=== PATIENT | female | born 1985 | race Caucasian/White ===

== ENCOUNTER 2019-07-27 13:36 | Outpatient (CLI) | payer OTHER, SELFPAY ==
--- NOTE | ~2019-07-27 | US_ITS ---
EXAMINATION: US OB <= 14 weeks fetus EXAM DATE: 07/27/2019 14:41 INDICATION: For dating. . 2nd trimester. TECHNIQUE: Pelvic obstetrical transabdominal sonogram was performed by a technologist. There are mu ltiple grayscale and Doppler images available for interpretation. There are no earlier studies of th is gestation for comparison. FINDINGS: Uterus measures 11.4 x 7.2 x 10.6 cm. There is intrauterine gestation sac. pole wit h heart rate confirmed at 157 beats per minute. The 7.9 cm crown-rump length corresponds to estimate d gestational age by ultrasound of 14 weeks 0 days. There is no sonographic evidence of subchorionic hemorrhage. The ovaries are morphologically normal. IMPRESSION: Live intrauterine gestation, age by ultrasound 14 weeks 0 days. Reviewed, dictated and finalized at location A.
== END 2019-07-27 13:37 | disposition home or self-care (01) ==
PROVIDERS: Visit Provider Nurse Practitioner
DX: Z36.9 Encounter for antenatal screening, unspecified (principal); Z3A.14 14 weeks gestation of pregnancy
CPT/HCPCS: 76801

== ENCOUNTER 2019-11-12 10:39 | Outpatient (CLI) | payer OTHER, SELFPAY ==
[2019-11-12 12:03] LABS: Hematocrit 35.2 % (37.0-47.0)
[2019-11-12 12:16] LABS: Glucose 1 Hour PP 50gm Dose 111 mg/dL
[2019-11-12 12:57] LABS: Vitamin D 25 Hydroxy 60.6 ng/mL
[2019-11-12 12:58] LABS: HIV 1/2 Ab P24 Ag Result Negative (Negative)
[2019-11-12] MEDS: RHO(D) IMMUNE GLOBULIN 300 MCG SYRINGE IM (15:59)
== END 2019-11-12 10:40 | disposition home or self-care (01) ==
LOC: ANHLAB 10:41
PROVIDERS: Visit Provider Nurse Practitioner
DX: Z34.92 Encounter for supervision of normal pregnancy, unspecified, second trimester (principal)
CPT/HCPCS: 36415; 82306; 82947; 85014; 85018; 85461; 86703; 90384; 96372; G0432; J2790

== ENCOUNTER 2020-01-12 17:05 | Observation (INO) | payer OTHER, SELFPAY ==
[2020-01-12] MEDS: CYCLOBENZAPRINE HCL 10 MG TABLET PO (22:31)
--- NOTE | 2020-01-14 12:14 | PM.OBTRLD ---
OB - Triage/Final Diagnosis Final Diagnosis (1) Prolonged latent phase of labor: Code(s): O63.0 - Prolonged first stage (of labor) Status: Acute
== END 2020-01-12 22:40 | disposition home or self-care (01) ==
PROVIDERS: Admitting Provider Obstetrics & Gynecology; Visit Provider Obstetrics & Gynecology
DX: O63.0 Prolonged first stage (of labor) (principal); Z3A.37 37 weeks gestation of pregnancy
CPT/HCPCS: A9270; G0378; G0379

== ENCOUNTER 2020-01-13 07:51 | Inpatient (IN) | payer OTHER, SELFPAY ==
[2020-01-13] VITALS (78 sets, daily range): BP systolic 81–125; BP diastolic 48–98; PULSE 62–113; RESP 16; TEMP 36.7–37; O2SAT 93–98
[2020-01-13] MEDS: LACTATED RINGERS 1,000 ML 125 ML IV CONT ×3 (08:40→10:02)
[2020-01-13 08:44] LABS: Basophils Percent Auto 0.1 % (0.2-1.2); Hematocrit 35.2 % (37.0-47.0); Hemoglobin 12.2 g/dL (12.0-15.0); Immature Granulocyte Absolute 0.17 K/mm3 (0.00-0.031); Immature Granulocyte Percent A 1.1 % (0-0.5); Lymphocytes Percent Auto 6.5 % (18.3-44.2); Mean Corpuscular HGB Conc 34.7 g/dl (32-36); Mean Corpuscular Hemoglobin 31.1 pg (26-34); Mean Corpuscular Volume 89.8 fl (80-100); Mean Platelet Volume 10.3 fl (7.4-10.4); Monocytes Absolute Auto 0.7 K/mm3 (0.1-0.6); Monocytes Percent Auto 4.5 % (2.6-8.5); Neutrophils Absolute Auto 13.5 K/mm3 (1.3-6.7); Neutrophils Percent Auto 87.8 % (45.5-73.1); Platelet Count Result 176 k/mm3 (150-375); Red Blood Count 3.92 M/mm3 (4.2-5.4); Red Cell Distribution Width 12.7 % (11.5-14.5); White Blood Count 15.4 K/mm3 (4.5-10.0)
[2020-01-13] MEDS: ONDANSETRON INJ 4 MG/2 ML VIAL IV PUSH (08:44)
--- NOTE | 2020-01-13 09:00 | LDADM ---
This patient, Jacinta Jewell, was admitted to Labor/Delivery/Recovery 106 on 01/13/20 at 07:51. Plans for labor, pain management and were discussed with patient. Patient/family oriented to hospital policies and general routines including ID bracelet, bed and alarms, visiting hours, pain management, procedures, bathroom and other care routines, personal items, smoking policy, room service/diet and guest tray routines, infant security routines, and visiting hours. Patient/Family are encouraged to report perceived risks to care and to ask questions if they do not understand what they are told or what they should do. See OBIX for further documentation.
--- NOTE | 2020-01-13 09:39 | WPDANESEPPF ---
Anes - Initial Pre Proc Eval Procedure: labor epidural Date/Time: 01/13/20 09:39 Surgeon: Roberto Prince MD Pre Op Diagnosis: labor pain Pre Op Diagnosis: LABOR Patient Data Age: 34 Gender: F Height: Weight: Last Vital Signs Temp 36.9 C 01/13/20 08:46 Pulse 85 01/13/20 09:38 BP 99/65 L 01/13/20 09:38 Pulse Ox 98 01/13/20 09:35 Allergies Allergy/AdvReac Type Severity Reaction Status Date / Time adhesive Allergy Mild RASH Verified 09/20/16 15:51 Home Medications Medication Instructions Recorded Confirmed Type PNV cmb#95-ferrous fumarate-FA 1 tablet PO DAILY 01/07/20 01/13/20 History [] ergocalciferol (vitamin D2) 50,000 unit PO WEEKLY 01/07/20 01/13/20 History [Vitamin D2] sertraline 50 mg PO DAILY 01/07/20 01/13/20 History Laboratory Tests 01/13/20 01/13/20 08:38 08:38 WBC 15.4 K/mm3 H K/mm3 (4.5-10.0) RBC 3.92 M/mm3 L M/mm3 (4.2-5.4) Hgb 12.2 g/dL g/dL (12.0-15.0) Hct 35.2 % L % (37.0-47.0) MCV 89.8 fl fl (80-100) MCH 31.1 pg pg (26-34) MCHC 34.7 g/dl g/dl (32-36) RDW 12.7 % % (11.5-14.5) Plt Count 176 k/mm3 k/mm3 (150-375) MPV 10.3 fl fl (7.4-10.4) Immature Gran % (Auto) 1.1 % H % (0-0.5) Neut % (Auto) 87.8 % H % (45.5-73.1) Lymph % (Auto) 6.5 % L % (18.3-44.2) [place] % (Auto) 4.5 % % (2.6-8.5) Eos % (Auto) 0.0 % % (0-4.4) Baso % (Auto) 0.1 % L % (0.2-1.2) Lymph # (Auto) 1.00 K/mm3 K/mm3 (0.9-3.2) [place] # (Auto) 0.7 K/mm3 H K/mm3 (0.1-0.6) Eos # (Auto) 0.0 K/mm3 K/mm3 (0-0.3) Baso # (Auto) 0.0 K/mm3 K/mm3 (0.0-0.1) Abs Immat Gran (auto) 0.17 K/mm3 H K/mm3 (0.00-0.031) Absolute Neuts (auto) 13.5 K/mm3 H K/mm3 (1.3-6.7) Absolute Nucleated RBC 0.0 K/mm3 K/mm3 (0.0-0.012) Nucleated RBC % 0.0 % % (0.0-0.2) RPR Pending Patient hx anesthesia problems: none Family hx anesthesia problems: none PMFSH Family History Family History (Updated 01/07/20 @ 15:30 by Ever Vines RN) Mother Lyme disease Social History Social History Smoking status: Never smoker Second hand tobacco smoke exposure: No Substance use: never Gender identity (if verbalized by the patient): Female Spiritual care concerns: No Anes - Eval Final PreProcedure Day of Procedure 01/13/20 09:39 Patient weight: normal ASA classification: II Emergent: no Anesthesia type and monitoring: regional epidural Informed Consent: The patient's anesthetic plan and its attendant risks and benefits were discussed with the patient/family/POA. Questions were solicited and answers provided to the satisfaction of the patient/family/POA.
[2020-01-13 09:50] LABS: Rapid Plasma Reagin Non-Reactive (NonReactive)
[2020-01-13] MEDS: OXYTOCIN 30 UNITS/NS 500 ML 30 UNITS/500 ML BAG 999 UNITS IV CONT (11:51)
--- NOTE | 2020-01-13 12:02 | P.PCNOB_ITS ---
OB - Delivery Note Procedure Delivery date: 01/13/20 Procedure: Intrapartal events: None Induction method: none Delivery monitor: external FHT and external uterine Route of delivery: Laceration Description: Periurethral Delivery repair: vicryl Estimated blood loss (mL): 350 Anesthesia type: Epidural Disposition: floor [place] Baby Date of : 01/13/20 Time of : 11:47 Weeks of gestation at delivery: 38 Infant gender: Male Weight (pounds): 8 Weight (ounces): 1 presentation: vertex position: Left Occiput Anterior cord vessel description: 3 Vessels score one minute: 9 score five minutes: 9
[2020-01-13] MEDS: OXYTOCIN 30 UNITS/NS 500 ML 30 UNITS/500 ML BAG 125 UNITS IV CONT (12:24)
[2020-01-13] MEDS: IBUPROFEN 600 MG TABLET PO ×2 (14:28→20:10)
[2020-01-13] MEDS: BENZOCAINE 20% AER SPR (*SP) 56 GM CAN 1 SPRAY TOPICAL (14:29)
[2020-01-13] MEDS: WITCH HAZEL 40 PADS 1 PAD TOPICAL (14:29)
--- NOTE | 2020-01-13 15:06 | PC.NURSE ---
PT arrived on unit via wheelchair accompanied by spouse and and taken to room 286. PT oriented to room and surroundings. PT introductions made and plan of care discussed per post , pain management, breast feeding, daily care activities. Welcome packet reviewed and discussed . PT verbalized understanding of such care.
[2020-01-13] MEDS: DOCUSATE SODIUM 100 MG CAPSULE PO (17:18)
[2020-01-13] MEDS: ACETAMINOPHEN 325 MG TABLET 650 MG PO (17:18)
[2020-01-14] MEDS: IBUPROFEN 600 MG TABLET PO ×3 (04:40→23:29)
[2020-01-14 06:11] LABS: Hemoglobin 9.7 g/dL (12.0-15.0)
[2020-01-14 08:30] VITALS: BP 105/62; PULSE 68; RESP 18; TEMP 36.7; O2SAT 99
[2020-01-14] MEDS: POLYSACCHARIDE IRON COMPLEX 150 MG CAPSULE PO ×2 (08:30→16:56)
[2020-01-14] MEDS: SERTRALINE HCL 50 MG TABLET PO (08:30)
[2020-01-14] MEDS: MULTIVIT/MIN/PREN/FOL AC/IRON TABLET 1 TAB PO (08:30)
[2020-01-14] MEDS: DOCUSATE SODIUM 100 MG CAPSULE PO ×2 (08:30→16:56)
--- NOTE | 2020-01-14 12:10 | P.DS_ITS ---
DS: Admitting Diagnosis Admitting Diagnosis Admitting Diagnosis: LABOR DS: Discharge Diagnosis Discharge Diagnosis (1) (normal spontaneous vaginal delivery): Code(s): O80 - Encounter for full-term uncomplicated delivery Status: Acute DS: Summary Time Spent with Patient Time attestation: Total time spent providing and/or coordinating discharge services: DS: Data Data Completed and Pending Labs on day of discharge: Labs from last 24 hours 01/14/20 01/14/20 01/13/20 05:17 05:17 08:38 Hgb 9.7 L Hct 29.0 L Blood Type O Negative Antibody Screen TNP Antibody Identification Passive Due to RH Imm Glob Antigen Identification TNP LILIAM, IgG Interpret Not Performed LILIAM, Poly Interpret Negative LILIAM, Complement Interp Not Performed Screen Negative Baby's Blood Type O pos Baby's LILIAM Positive Doses of RhIg Required 1 Discharge Plan Discharge Attending physician on discharge: Roberto Prince Discharging Clinician: Roberto Prince Patient Disposition: Home, Self-Care Activity: follow weight bearing status and pelvic rest Diet: regular Patient Instructions: Antibiotic Form Stand Alone Forms: General Discharge Information Follow-up/Referrals: Roberto Prince MD [Physician] - Discharge Medications: New norethindrone (contraceptive) 0.35 mg tablet 0.35 mg PO DAILY Qty: 28 RF: 3 Continued PNV cmb#95-ferrous fumarate-FA [] 28 mg iron- 800 mcg Tablet 1 tablet PO DAILY RF: 0 sertraline 50 mg Tablet 50 mg PO DAILY RF: 0 ergocalciferol (vitamin D2) [Vitamin D2] 1,250 mcg (50,000 unit) Capsule 50,000 unit PO WEEKLY RF: 0 Date of admission: 01/13/20 07:51 Primary Care Provider: PHYSICIAN,PROCESSING [employer]ALC AND BORATE SUPERVISOR Admitting Provider: Roberto Prince Attending physician on admission: Roberto Prince Condition: Stable
--- NOTE | 2020-01-14 12:11 | PM.OBPNVD ---
OB - PN: Subj Subjective Date/time seen: 01/14/20 12:11 doing well no complaints OB - PN: Obj Data Labs CBC & Chem 7: 01/14/20 05:17 Labs: Laboratory Results - last 24 hr 01/13/20 01/14/20 01/14/20 08:38 05:17 05:17 Hgb 9.7 L Hct 29.0 L Blood Type O Negative Antibody Screen TNP Antibody Identification Passive Due to RH Imm Glob Antigen Identification TNP LILIAM, IgG Interpret Not Performed LILIAM, Poly Interpret Negative LILIAM, Complement Interp Not Performed Screen Negative Baby's Blood Type O pos Baby's LILIAM Positive Doses of RhIg Required 1 OB - PN A/P Assessment and Plan (1) (normal spontaneous vaginal delivery): Code(s): O80 - Encounter for full-term uncomplicated delivery Status: Acute Assessment and Plan: continue with pp care. Time Spent With Patient Time: Total time spent is greater than 50% in coordination of care (as documented) at patient's floor/unit and/or counseling patient: Exam GI: Other: ff below umbilicus
[2020-01-14] MEDS: ACETAMINOPHEN 325 MG TABLET 650 MG PO ×2 (12:46→19:58)
[2020-01-14] MEDS: RHO(D) IMMUNE GLOBULIN 300 MCG SYRINGE IM (14:07)
--- NOTE | 2020-01-14 17:30 | WPDANLDPN2 ---
Anes-Prog Note L&D Date/Time: 01/14/20 17:30 Comfortable throughout: labor and delivery Neuraxial method: epidural Epidural/Spinal procedure site: clean & non-tender Neuro status: Neuro function grossly intact. Cardiovascular status: normal Respiratory status: normal Airway patency: baseline Mental status: baseline Post-Op hydration status: normal Vital Signs: Last Vital Signs Temp 36.7 C 01/14/20 08:30 Pulse 68 01/14/20 08:30 Resp 18 01/14/20 08:30 BP 105/62 01/14/20 08:30 Pulse Ox 99 01/14/20 08:30 Pain score (VAS): 0 Patient feedback: Patient satisfied with anesthetic care.
[2020-01-14 20:24] VITALS: BP 109/69; PULSE 73; RESP 18; TEMP 36.9; O2SAT 97
[2020-01-15 08:00] VITALS: BP 118/64; PULSE 76; RESP 18; TEMP 36.6
[2020-01-15] MEDS: BENZOCAINE 20% AER SPR (*SP) 56 GM CAN 1 SPRAY TOPICAL (08:24)
[2020-01-15] MEDS: WITCH HAZEL 40 PADS 1 PAD TOPICAL (08:24)
[2020-01-15] MEDS: IBUPROFEN 600 MG TABLET PO ×2 (08:25→14:12)
[2020-01-15] MEDS: DOCUSATE SODIUM 100 MG CAPSULE PO (08:25)
[2020-01-15] MEDS: SERTRALINE HCL 50 MG TABLET PO (08:26)
[2020-01-15] MEDS: POLYSACCHARIDE IRON COMPLEX 150 MG CAPSULE PO (08:26)
--- NOTE | 2020-01-15 10:00 | PC.NURSE ---
Patient was given the opportunity to view the discharge video Mother & Baby Care, The First Two Weeks and to ask questions. Patient declined viewing the video and has been given the mother/baby guide for home reference.
[2020-01-15] MEDS: LANOLIN (LANSINOH) 7.5 GM CREAM 1 APPLIC TOPICAL (14:13)
[2020-01-18 11:23] VITALS: BP 120/73; PULSE 65; RESP 14; TEMP 37.2; O2SAT 99
== END 2020-01-15 14:17 | disposition home or self-care (01) | DRG 807 ==
LOC: ANHLDR 12:15 → ANHOB2 15:08
PROVIDERS: Admitting Provider Obstetrics & Gynecology; Visit Provider Obstetrics & Gynecology
DX: O99.62 Diseases of the digestive system complicating childbirth (principal); Z37.0 Single live birth; Z3A.37 37 weeks gestation of pregnancy; K21.9 Gastro-esophageal reflux disease without esophagitis; O71.82 Other specified trauma to perineum and vulva; O36.8330 Maternal care for abnormalities of the fetal heart rate or rhythm, third trimester, not applicable or unspecified
CPT/HCPCS: 36415; 85014; 85018; 85025; 85461; 86592; 86850; 86880; 86900; 86901; 86902; 90384; A9270; J2405; J2590; J2790; J2795; J7120

== ENCOUNTER 2025-02-11 11:12 | Outpatient (CLI) | payer OTHER, SELFPAY ==
--- NOTE | ~2025-02-11 | CT_ITS ---
CT abdomen pelvis w con Clinical History: LUQ pain X 2 WKS, diarrhea, family hx crohns . Comparison: None Technique: Axial images lung bases to symphysis pubis IV contrast information not listed in PACS Coronal, sagittal reformats CT images acquired with automatic exposure control for dose reduction DLP: 344 mGy-cm Findings: Lung bases: Clear. Visualized heart and pericardium: Unremarkable. Liver: Enlarged. Steatosis. Tiny hypodense focus segment 6 posteriorly too small to characterize Gallbladder: Unremarkable. Spleen: Unremarkable. Pancreas: Unremarkable. Adrenal glands: Unremarkable. Kidneys: Right kidney- No hydronephrosis. No renal stones. Left kidney- No hydronephrosis. No renal stones. Distal esophagus/stomach: Unremarkable. Small bowel loops: Normal caliber and wall thickness. Colon: Normal caliber and wall thickness. Normal RLQ appendix. Nodes: No enlarged nodes. Peritoneum: No ascites. No free air. Urinary bladder: Unremarkable. Uterus: Unremarkable. Adnexa: No masses. Prominent left gonadal veins. Bones: No acute bony abnormality. Soft tissues: Unremarkable. Aorta: No aneurysm or dissection. IVC: Unremarkable. Main portal vein/SMV/splenic vein: Patent. IMPRESSION: 1. No acute findings. Reviewed, dictated and finalized at location R. E BEATER OPERATOR IMPRESSION: 1. No acute findings.
--- OUTSIDE RECORDS SUMMARY | 2025-02-11 08:40 | XMS_ITS | Encounter Summary ---
Author Organization [facility] Address [facility] [place] [address] Care Team Providers Care Flag Decorator Name Role Phone Kezia Chowdhury NP Primary Care Provider [phone] Reason for Referral * Imaging (Emergency) - Closed Specialty Diagnoses / Procedures Referred By Dimitry reyna Referred To Contact RADIOLOGY Diagnoses Left upper quadrant abdominal pain Alternating constipation and diarrhea Procedures CT ABD+PEL W CON Kezia Chowdhury NP [address] [place] [address] Phone: tel: fax: Referral ID Status Reason Start Date Expiration Date Visits Re quested Visits Authorized [id number] Closed 02/11/2025 02/11/2026 1 1 OYMENT LAW SPECIALIST Reason for Visit * Reason Comments Gi Problem Patient presents wit h c/o episodes of nausea, lots of gas, left sided abdominal pain , diarrhea x 01/25/2025 Encounter Details Date Type Department Care Team (Late st Contact Info) Description 02/11/2025 8:40 AM EMPLOYMENT LAW SPECIALIST Office Visit [facility] Family [facility] [address] [place], [place] [address] Kezia Chowdhury NP [address] [place] [address] Gi Problem (Patient presents with c/o episodes of nausea, lots of gas, left sided abdominal pain , diarrhea x 01/25/2025) Social History Tobacco Use Types Packs/Day Years Used Date Smoking Tobacco: Never Passive Smoke Exposure: Never Smokeless Tobacco: Never Tobacco Cessation:Counseling Given: No Alcohol Use Standard Drinks/Week Comments Yes 1.7 (1 standard drink = 0.6 oz p ure alcohol) PHQ-2 Answer Date Recorded Patient Health Questionnaire-2 Score 0 09/08/2024 Comments No Sex and Gender Information Value Date Recorded Sex Assigned at Female 09/08/2024 7:52 AM CDT Legal Sex Female 10:04 PM EMPLOYMENT LAW SPECIALIST Gender Identity Not on file Sexual Orientation Not on file documented as of this encounter Last Filed Vital Signs Vital Sign Reading Time Taken Comments Blood Pressure 90/56 02/11/2025 8:42 AM EMPLOYMENT LAW SPECIALIST Pulse 103 02/11/2025 8:42 AM EMPLOYMENT LAW SPECIALIST Temperature 36.7 C (98 F) 02/11/2025 8:42 AM EMPLOYMENT LAW SPECIALIST Respiratory Rate 10 02/11/2025 8:42 AM EMPLOYMENT LAW SPECIALIST Oxygen Saturation 98% 02/11/2025 8:42 AM EMPLOYMENT LAW SPECIALIST Inhaled Oxygen Concentration - - Weight 69.4 kg (153 lb) 02/11/2025 8:42 AM EMPLOYMENT LAW SPECIALIST Height 166.4 cm (5' 5.5) 02/11/2025 8:42 AM EMPLOYMENT LAW SPECIALIST Body Mass Index 25.07 02/11/2025 8:42 AM EMPLOYMENT LAW SPECIALIST documented in this encounter Progress Notes * Kezia Chowdhury NP - 02/11/2025 8:40 AM CSTAddended by: KEZIA CHOWDHURY on: 02/11/2025 09:45 AM Modules accepted: Orders OYMENT LAW SPECIALIST * Kezia Chowdhury NP - 02/11/2025 8:40 AM CST Images from the original note were not included. Chief Complaint Patient presents with Gi Problem Patient presents with c/o episodes of nausea, lots of gas, left sided abdominal pain , diarrhea x 01/25/2025 SUBJECTIVE: Jacinta Jewell is a 39-year-old female who presents for continual complaints of left sided abd pain History of Present Illness The patient presents for evaluation of abdominal pain. Symptoms began on 01/25/2025 with diarrhea, hot sweats, and stomach pain. Concurrently, she had sinus congestion and a sore throat starting the preceding Friday. Her condition worsened, culminating in significant pain on , disrupting s leep and leading to loss of appetite and fluid intake. She suspects a gallbladder issue. 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 She reports constipation and difficulty passing stool, lint cleaner gas and bowel movements followed by diarrhea. During the first week, she sought urgent care and was referred tot ER from urgent care where she was initally seen. The ER physician attributed her symptoms to a viral illness and no CT scan was ordered. She received fluids, Zofran. She lost weight due to decreased food and fluid intake over four days. Her symptoms fluctuate, with some days being symptom-free.She has been fatigued for the past two days due to disrupted sleep. There is no blood in her stool.Her fluid intake has increased since the hospital visit. She is taking Pepcid, Nexium, and Gas-X, dicyclomine. She has a history of internal hemorrhoids. Social History: Sleep: Disrupted sleep due to pain, waking at 5 or 6 AM. FAMILY HISTORY Sister has Crohn's disease, celiac disease, and had a small bowel obstruction. No problems updated. Current Outpatient Medications: ALPRAZolam (XANAX) 0.5 MG tablet, Take 1 tablet (0.5 mg total) by mouth nightly as needed for Sleep. (Patient taking differently: Take 1 tablet (0.5 mg total) by mouth nightly as needed for Sleep. Travel only), Disp: 4 tablet, Rfl: 0 dicyclomine (BENTYL) 20 MG tablet, Take 1 tablet (20 mg total) by mouth every 6 (six) hours., Disp:20 tablet, Rfl: 0 Doxylamine Succinate, Sleep, (SLEEP AID, DOXYLAMINE, OR), Take 25 mg by mouth nightly at bedtime., Disp: , Rfl: hydrOXYzine (ATARAX) 25 MG tablet, Take 1 tablet (25 mg total) by mouth 2 (two) times daily as needed. FOR ANXIETY, Disp: 180 tablet, Rfl: 2 levothyroxine (UNITHROID) 75 MCG tablet, Take 1 tablet (75 mcg total) by mouth every morning., Disp: 90 tablet, Rfl: 1 MICHAEL 3-0.03 MG tablet, Take 1 tablet by mouth daily., Disp: , Rfl: vitamin D2, ergocalciferol, (DRISDOL) 1.25 mg capsule, Take 1 capsule (1.25 mg total) by mouth every 14 (fourteen) days. Patient takes on the and 15th of every month, Disp: 6 capsule, Rfl: 3 sertraline (ZOLOFT) 50 MG tablet, TAKE 1 TABLET DAILY (Patient not taking: Reported on 02/11/2025),Disp: 90 tablet, Rfl: 1 Review of patient's allergies indicates: Allergen Reactions Adhesive [Tape] Rash Past Medical History[1] Past Surgical History[2] Family History[3] Social History Socioeconomic History Marital status: Spouse name: Not on file Number of children: Not on file Years of education: Not on file Highest education level: Not on file Occupational History Not on file Tobacco Use Smoking status: Never Passive exposure: Never Smokeless tobacco: Never Vaping Use Vaping status: Never Used Substance and Sexual Activity Alcohol use: Yes Alcohol/week: 1.7 standard drinks of alcohol Types: 1 Cans of beer per week Drug use: Never Sexual activity: Yes Partners: Male control/protection: OCP, Surgical Other Topics Concern Not on file Social History Narrative 2 children Social Drivers of Health Financial Resource Strain: Not on file Food Insecurity: Not on file Transportation Needs: Not on file Physical Activity: Not on file Stress: Not on file Social Connections: Not on file Intimate Partner Violence: Not on file Housing Stability: Not on file ROS: Review of Systems Constitutional: Negative. HENT: Negative. Eyes: Negative. Respiratory: Negative. Cardiovascular: Negative. Gastrointestinal: Positive for abdominal pain (left side of abdomen), constipation, diarrhea and nausea. Negative for anal bleeding and blood in stool. Endocrine: Negative. Genitourinary: Negative. Musculoskeletal: Negative. Skin: Negative. Allergic/Immunologic: Negative. Neurological: Negative. Hematological: Negative. Psychiatric/Behavioral: Negative. OBJECTIVE: Filed Vitals: 02/11/25 0842 BP: 90/56 Pulse: (!) 103 Resp: 10 Temp: 98 ??F (36.7 ??C) TempSrc: Core SpO2: 98% Weight: 69.4 kg (153 lb) Height: 1.664 m (5' 5.5) Physical Exam Constitutional: General: She is not in acute distress. Appearance: Normal appearance. She is not ill-appearing, toxic-appearing or diaphoretic. HENT: Nose: Nose normal. Mouth/Throat: Mouth: Mucous membranes are moist. Eyes: Pupils: Pupils are equal, round, and reactive to light. Cardiovascular: Rate and Rhythm: Normal rate and regular rhythm. Pulmonary: Effort: Pulmonary effort is normal. Breath sounds: Normal breath sounds. Abdominal: General: Abdomen is flat. Bowel sounds are decreased. Palpations: Abdomen is soft. Tenderness: There is abdominal tenderness in the left upper quadrant. There is no guarding or rebound. Musculoskeletal: General: Normal range of motion. Cervical back: Normal range of motion. Skin: General: Skin is warm and dry. Findings: No rash. Neurological: General: No focal deficit present. Mental Status: She is alert and oriented to person, place, and time. Psychiatric: Mood and Affect: Mood normal. Behavior: Behavior normal. Thought Content: Thought content normal. Judgment: Judgment normal. PHQ-9: 06/16/2023 10:18 AM 09/08/2024 8:03 AM PHQ2/PHQ 9 DEPRESSION SCREEN QUESTIONAIRE Little interest or pleasure in doing things Not at all Not at all Feeling down, depressed, or hopeless Not at all Not at all Patient Health Questionnaire-2 Score 0 0 Trouble falling or staying asleep, or sleeping too much Almost all Not at all Feeling tired or having little energy Almost all Almost all Poor appetite or overeating Not at all Several days Feeling bad about yourself - or that you are a failure or have let yourself or your family down Notat all Not at all Trouble concentrating on things, such as reading the newspaper or watching television Not at all Several days Moving or speaking so slowly that other people could have noticed? Or the opposite - being so fidgety or restless that you have been moving around a lot more than usual. Not at all Not at all Thoughts that you would be better off or hurting yourself in some way Not at all Not at all Patient Health Questionnaire-9 Score 6 5 How difficult have these problems made it for you to do your work, take care of things at home, or get along with other people? Not difficult at all Somewhat difficult Data saved with a previous flowsheet row definition ASSESSMENT AND PLAN Jacinta Jewell is a 39-year-old female Problem List Items Addressed This Visit None Visit Diagnoses Left upper quadrant abdominal pain - Primary Relevant Orders CBC W/DIFF COMPREHENSIVE METABOLIC PANEL CALPROTECTIN FECAL CELIAC DISEASE ANTIBODY PANEL CT ABD+PEL W CON Alternating constipation and diarrhea Relevant Orders CT ABD+PEL W CON Assessment & Plan 1. Abdominal pain: - Ongoing abdominal pain since 01/25/2025, with diarrhea, constipation, and gas. Experienced weightloss and fluctuating pain intensity. - Order CT scan to rule out diverticulitis or other causes. - Offered X-ray today to assess for ileus or stool accumulation but pt declined - Recheck blood work - Order fecal calprotectin test for inflammatory bowel disease d/t famil hx of IBD in family and pthas autoimmune disorder. - Prescribe Zofran for nausea. - Advise soft diet, gradually transition to liquid diet to alleviate potential colon inflammation. - Seek immediate medical attention if pain intensifies over the weekend. Follow-up - Labs to [facility]. - CT scan at [facility]. - Zofran to [facility]. This document was created in part by using voice recognition software and was reviewed by the author. If errors are present, please bring them to your provider's attention. KEZIA CHOWDHURY NP [1] Past Medical History: Diagnosis Date Anxiety 2022 Depression 2016 Post Disease of thyroid gland 2021 Elsa Vaginal delivery (HHS/HCC) 10/07/2016 girl Vaginal delivery (HHS/HCC) 01/13/2020 boy [2] History reviewed. No pertinent surgical history. [3] Family History Problem Relation Name Age of Onset Hyperlipidemia Mother Mary Anne Arthritis Father Wellington Hypertension Father [place] Cancer Maternal Grandmother Otilia 80 - 99 of breast cancer Early Paternal Grandfather Jesus Heart attack at age 50 Arthritis Paternal Grandmother Caitlin Diabetes Paternal Grandmother Caitlin Early Hearing Loss Sister Keeley 0 - 9 Cyst destroyed her ear drum. She has a bone anchored hearing device. OYMENT LAW SPECIALIST documented in this encounter Plan of Treatment Scheduled Orders Name Type Priority Associated Diagnoses Orde r Schedule CBC W/DIFF Lab Routine Left upper quadrant abdominal pain Expected: 02/11/2025, Expires: 02/11/2026 COMPREHENSIVE METABOLIC PANEL Lab Routine Left upper quadrant abdominal pain Expected: 02/11/2025, Expires: 02/11/2026 CALPROTECTIN FECAL Microbiology Routine Left upper quadrant abdominal pain Expected: 02/11/2025, Expires: 02/11/2026 CELIAC DISEASE ANTIBODY PANEL Lab Routine Left upper quadrant abdominal pain Expected: 02/11/2025, Expires: 02/11/2026 CT ABD+PEL W CON CT STAT Left upper quadrant abdominal pain Alternating constipation and diarrhea Expected: 02/11/2025, Expires: 02/11/2026 documented as of this encounter Visit Diagnoses Diagnosis Left upper quadrant abdominal pain- Primary Alternating constipation and diarrhea Other symptoms involving digestive system Nausea Nausea alone documented in this encounter Additional Health Concerns Assessment Noted Time PHQ-9 Depression Total Score: 5 09/09/19 25 8:03 AM CDT documented as of this encounter Care Teams Flag Decorator Relationship Specialty Start Date End Date Kezia Chowdhury NP [address] [place] [address] PCP - General NURSE PRACTITIONER 06/16/23 documented as of this encounter
--- OUTSIDE RECORDS SUMMARY | 2025-02-11 11:46 | XMS_ITS | Clinical Summary ---
Author Organization [facility] Address [address] [place] [address] Care Team Providers Care Emergency Care Attendant Name Role Phone Kezia Chowdhury NP Primary Care Provider [phone] Allergies Active Allergy Reactions Criticality Noted Date Comments Tape Rash Low 06/16/2023 Medications MICHAEL 3-0.03 MG tablet Take 1 tablet by mouth daily. 4 Active Doxylamine Succinate, Sleep, (SLEEP AID, DOXYLAMINE, OR) Take 25 mg by mouth nightly at bedtime. Active ALPRAZolam (XANAX) 0.5 MG tabletIndication s:Anxiety with flying Take 1 tablet (0.5 mg total) by mouth nightly as needed for Sleep. 4 tablet 4 Active Additional Information Patient taking differently:0.5 mg Oral Nightly PRN, Sleep,Travel only, Reported on 02/11/2025 sertraline (ZOLOFT) 50 MG tabletIndication s:Anxiety and depression TAKE 1 TABLET DAILY 90 tablet 1 4 Active Additional Information Patient not taking.Reported on 02/11/2025 hydrOXYzine (ATARAX) 25 MG tabletIndication s:Generalized anxiety disorder Take 1 tablet (25 mg total) by mouth 2 (two) times daily as needed. FOR ANXIETY 180 tablet 2 5 Active vitamin D2, ergocalciferol, (DRISDOL) 1.25 mg capsuleIndicatio ns:Vitamin D deficiency Take 1 capsule (1.25 mg total) by mouth every 14 (fourteen) days. Patient takes on the 1st and 15th of every month 6 capsule 3 5 Active levothyroxine (UNITHROID) 75 MCG tabletIndication s:Hypothyroidism , unspecified type Take 1 tablet (75 mcg total) by mouth every morning. 90 tablet 1 5 Active dicyclomine (BENTYL) 20 MG tablet Take 1 tablet (20 mg total) by mouth every 6 (six) hours. 20 tablet 5 Active ondansetron (ZOFRAN) 4 MG tabletIndication s:Nausea Take 1 tablet (4 mg total) by mouth every 8 (eight) hours as needed. 20 tablet 5 Active Active Problems Problem Noted Date Diagnosed Date Anxiety 09/08/2024 Overview (09/08/2024): Chronic condition. Well controlled with Sertraline. And and as needed hydrOXYzine. Pt states her anxiety has gotten better Assessment & Plan (09/08/2024 9:08 AM CDT): Chronic condition. Doing well. Continue taking Sertraline and PRN hydrOXYzine. Overweight (BMI 25.0-29.9) 09/08/2024 Assessment & Plan (09/08/2024 9:09 AM CDT): Encourage diet and lifestyle changes to assist with weight loss. Vitamin D deficiency 06/17/2023 Overview (09/08/2024): Taking Vitamin D replacement. Assessment & Plan (09/08/2024 9:10 AM CDT): Continue Vitamine D replacement. Will recheck level. 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 Currently taking Unithroid 50mcg daily. Pt thinks thyroid level is off due to fatigue and 15lb weight gain. Assessment & Plan (09/08/2024 8:44 AM CDT): Continue taking Unithroid 50mcg daily. Thyroid level ordered Encounters Date Type Department Care Team Description 02/11/2025 8:40 AM MANAGER STATISTICS Office Visit [place] [id number] [facility] [address] [place] [phone] Kezia Chowdhury NP Gi Problem (Patient presents with c/o episodes of nausea, lots of gas, left sided abdominal pain , diarrhea x 01/25/2025) 02/11/2025 Travel 01/29/2025 Results Follow-Up [facility] [id number] [place] [phone] Khloe Degroot PA URINALYSIS AUTO DIP, URINE BACTERIA CULTURE 01/28/2025 1:41 PM MANAGER STATISTICS - 01/28/2025 4:07 PM [facility] Emergency [facility] Emergency Room [id number] [place] [address] Huey Cartwright MD Abdominal Pain Discharge Disposition: Home or Self Care (Routine Discharge) 01/28/2025 1:15 PM MANAGER STATISTICS Office Visit [facility] Internal [facility] [id number] [place] [phone] Khloe Degroot PA Abdominal Pain (Pt c/o left lower abdomen pain sx started a couple days ago ); Congestion (Pt states her head cold X 7) 01/28/2025 Travel 12/01/2024 MyChart Message Enc [facility] [address] [facility] [address] [place] [address] [phone] [facility] Provider thyroid medication from Last 3 Months Immunizations Immunization Administration Dates Next Due Dtp (Generic) 05/21/1989 Influenza (Generic) 11/24/2023,01/05/2015,2013 Influenza Adult (Generic) 12/23/2022,01/11/2019 MMR (MMRII) 08/25/1992,03/12/1985 Polio Opv (Generic) 05/21/1989 Td (TDVAX) 07/17/1998 Tdap (Generic) 02/25/2008 Family History Medical History Relation Comments Arthritis Father Hypertension Father Cancer Maternal Grandmother of paul ast cancer Hyperlipidemia Mother Early Paternal Grandfather Heart attac k at age 50 Arthritis Paternal Grandmother Diabetes Paternal Grandmother Early Hearing Loss Sister Cyst antwane d her ear drum. She has a bone anchored hearing device. Relation Status Comments Father Maternal Grandmother Mother Paternal Grandfather Paternal Grandmother Sister Social History Tobacco Use Types Packs/Day Years [...] AM CDT Legal Sex Female 10:04 PM MANAGER STATISTICS Gender Identity Not on file Sexual Orientation Not on file Last Filed Vital Signs Vital Sign Reading Time Taken Comments Blood Pressure 90/56 02/11/2025 8:42 AM MANAGER STATISTICS Pulse 103 02/11/2025 8:42 AM MANAGER STATISTICS Temperature 36.7 C (98 F) 02/11/2025 8:42 AM MANAGER STATISTICS Respiratory Rate 10 02/11/2025 8:42 AM MANAGER STATISTICS Oxygen Saturation 98% 02/11/2025 8:42 AM MANAGER STATISTICS Inhaled Oxygen Concentration - - Weight 69.4 kg (153 lb) 02/11/2025 8:42 AM MANAGER STATISTICS Height 166.4 cm (5' 5.5) 02/11/2025 8:42 AM MANAGER STATISTICS Body Mass Index 25.07 02/11/2025 8:42 AM MANAGER STATISTICS Plan of Treatment Health Maintenance Due Date Last Done Comments Cervical Cancer Screening Pap Smear (Age 30 to 64) Every 3 Years 1983 Hepatitis B Vaccines (1 of 3 - 19+ 3-dose series) 12/10/2002 HPV Vaccines (1 - 3-dose SCDM series) 12/10/2010 DTaP, Tdap and Td Vaccines (4 - Td or Tdap) 02/24/2018 02/25/2008, 07/17/1998, 05/21/1989 COVID-19 Vaccine ( season) 2024 11/24/2023, 03/05/2021, 05/29/2020, Additional history exists Influenza Adult (#1) 2024 11/24/2023, 12/23/2022, 01/11/2019, Additional history exists Mammogram Screening 12/30/2024 12/31/2023 Cervical Cancer Screening Pap with HPV Testing (Age 30 to 64) Every 5 Years 08/11/2025 06/28/2022 Cervical Cancer Screening with HPV 08/11/2025 Annual Physical 09/08/2025 09/08/2024, 06/16/2023 Hepatitis C Completed 09/08/2023 PHQ-2 (Physician [place]) Completed 09/08/2024 Hepatitis A Vaccines Aged Out No long er eligible based on patient's age to complete this topic Meningococcal B Vaccine Aged Out No l onger eligible based on patient's age to complete this topic Meningococcal Vaccine Aged Out No karthikeyan madison eligible based on patient's age to complete this topic Pneumococcal Vaccine: Pediatrics (0 to 5 Years) and At-Risk Patients (6 to 49 Years) Aged Out No longer eligible based on patient's age to complete this topic RSV Immunizations Under 20 Months Aged Out No longer eligible based on patient's age to complete this topic Procedures Procedure Name Priority Date/Time Associated Diagnosis Comments URINALYSIS, AUTO, COMPLETE STAT 01/28/2025 2:45 PM MANAGER STATISTICS COMPREHENSIVE METABOLIC PANEL STAT 01/28/2025 2:45 PM MANAGER STATISTICS HC CBC AUTO W/AUTO DIFF STAT 01/28/2025 2:45 PM MANAGER STATISTICS URINE BACTERIA CULTURE Routine 1:33 PM MANAGER STATISTICS Left upper quadrant abdominal pain URINALYSIS AUTO DIP Routine 01/28/2025 Left upper quadrant abdominal pain TSH W/REFLEX Routine 11/19/2024 6:37 AM CDT Hypothyroidism, unspecified type HEPATITIS C ANTIBODY W/RFX TO HCV RNA Routine 09/08/2023 6:34 AM CDT Need for hepatitis C screening test OUTSIDE CYTOPATH CERV/VAG INTERPRET (PAP) 06/28/2022 from Last 3 Months or Most Recently Relevant to Health Maintenance Results * (ABNORMAL) URINALYSIS, AUTO, COMPLETE (01/28/2025 2:45 PM MANAGER STATISTICS) COLOR (U) YELLOW 01/28/2025 3:00 PM [facility] TRANSPARENCY CLEAR 01/28/2025 3:00 PM [facility] SPECIFIC GRAVITY (U) 1.020 1.000 - 1.030 01/28/2025 3:00 PM [facility] U PH 6.0 5.0 - 9.0 01/28/2025 3:00 PM [facility] LEUKOCYTES (U) NEGATIVE NEGATIVE 01/28/2025 3:00 PM [facility] NITRITES NEGATIVE NEGATIVE 01/28/2025 3:00 PM [facility] PROTEIN RANDOM (U) NEGATIVE NEGATIVE 01/28/2025 3:00 PM [facility] GLUCOSE (U) NEGATIVE NEGATIVE 01/28/2025 3:00 PM [facility] KETONES MG/DL (U) 1+(A) NEGATIVE 01/28/2025 3:00 PM [facility] BILIRUBIN (U) 1+(A) NEGATIVE 01/28/2025 3:00 PM [facility] BLOOD (U) TRACE(A) NEGATIVE 01/28/2025 3:00 PM [facility] WBC/HPF NONE SEEN 0 - 5 /HPF 01/28/2025 3:00 PM [facility] RBC/HPF 0-5 0 - 5 /HPF 01/28/2025 3:00 PM [facility] EPI/HPF MODERATE /HPF 01/28/2025 3:00 PM [facility] URINE URINE SPECIMEN OBTAINED BY CLEAN CATCH PROCEDURE / Unknown 01/28/2025 2:45 PM MANAGER STATISTICS us Huey Cartwright MD URINE ORDERABLES Final Result [facility] [address] [place] [address], * (ABNORMAL) COMPREHENSIVE METABOLIC PANEL (01/28/2025 2:45 PM MANAGER STATISTICS) GLUCOSE 88 70 - 99 MG/DL 01/28/2025 3:09 PM [facility] BUN 11 7 - 18 MG/DL 01/28/2025 3:09 PM [facility] CREATININE S/P/B 1.06(H) 0.55 - 1.02 MG/DL 01/28/2025 3:09 PM [facility] SODIUM S/P/B 137 136 - 145 MMOL/L 01/28/2025 3:09 PM [facility] POTASSIUM S/P/B 4.1 3.5 - 5.1 MMOL/L 01/28/2025 3:09 PM [facility] CHLORIDE S/P/B 100 100 - 108 MMOL/L 01/28/2025 3:09 PM [facility] CO2 30.3 21 - 32 MMOL/L 01/28/2025 3:09 PM [facility] CALCIUM S/P/B 9.2 8.5 - 10.1 MG/DL 01/28/2025 3:09 PM [facility] BILIRUBIN TOTAL S/P/B 0.4 0.2 - 1.2 MG/DL 01/28/2025 3:09 PM [facility] TOTAL PROTEIN S/P/B 7.6 6.4 - 8.2 G/DL 01/28/2025 3:09 PM [facility] ALBUMIN S/P/B 3.6 3.4 - 5.0 G/DL 01/28/2025 3:09 PM [facility] AST 11(L) 15 - 37 U/L 01/28/2025 3:09 PM [facility] ALT 15 14 - 55 U/L 01/28/2025 3:09 PM [facility] ALKALINE PHOSPHATASE S/P/B 80 50 - 136 U/L 01/28/2025 3:09 PM [facility] ANION GAP 6.7 5 - 15 MMOL/L 01/28/2025 3:09 PM [facility] BUN CREATININE RATIO 10.4 6 - 26 01/28/2025 3:09 PM [facility] A/G RATIO 0.9(L) 1.0 - 2.0 RATIO 01/28/2025 3:09 PM [facility] GFR ESTIMATE 68(L) >90 ML/MIN/1.7 3 M2 01/28/2025 3:09 PM [facility] Comment: NOTE: eGFR is not calculated for patients <18 years of age. This is an estimated GFR calculation using the new CKD EPI creatinine equation without race and so does not require a correction factor for race. This estimated GFR should not be used for calculating drug doses. BLOOD VENOUS BLOOD SPECIMEN / Unknown 01/28/2025 2:45 PM MANAGER STATISTICS us Huey Cartwright MD LABORATORY Final Result [facility] [address] [place] [address], [place] [phone] * (ABNORMAL) CBC W/DIFF AUTOMATED (01/28/2025 2:45 PM MANAGER STATISTICS) [facility] Signature WBC 7.42 4.4 - 11.0 x10'3/uL 01/28/2025 2:54 PM [facility] RBC 4.45(L) 4.50 - 5.10 x10'6/uL 01/28/2025 2:54 PM [facility] HGB 13.2 12.3 - 15.3 G/DL 01/28/2025 2:54 PM [facility] HCT 38.7 35.9 - 44.6 % 01/28/2025 2:54 PM [facility] MCV 87.0 80.0 - 96.0 FL 01/28/2025 2:54 PM [facility] MCH 29.7 25.3 - 30.9 PG 01/28/2025 2:54 PM [facility] MCHC 34.1 31.0 - 34.1 G/DL 01/28/2025 2:54 PM [facility] RDW 11.9(L) 12.4 - 15.1 % 01/28/2025 2:54 PM [facility] PLT 286 151 - 353 x10'3/uL 01/28/2025 2:54 PM [facility] MPV 9.5(L) 9.6 - 12.0 FL 01/28/2025 2:54 PM [facility] RBC MORPHOLOGY NORMAL 01/28/2025 2:54 PM [facility] PLT MORPH. NORMAL 01/28/2025 2:54 PM [facility] WBC MORPHOLOGY NORMAL 01/28/2025 2:54 PM [facility] LYMPHOCYTES % 19.9 15.8 - 45.0 % 01/28/2025 2:54 PM MANAGER STATISTICS [facility] NEUTROPHILS % 71.3 42.1 - 71.9 % 01/28/2025 2:54 PM MANAGER STATISTICS [facility] MONOCYTES % 7.5 5.7 - 12.5 % 01/28/2025 2:54 PM MANAGER STATISTICS [facility] EOSINOPHILS 0.4 0.0 - 5.6 % 01/28/2025 2:54 PM MANAGER STATISTICS [facility] BASOPHILS 0.5 0.0 - 1.3 % 01/28/2025 2:54 PM MANAGER STATISTICS [facility] ABS. NEUTROPHILS 5.28 1.40 - 6.00 x10'3/uL 01/28/2025 2:54 PM MANAGER STATISTICS [facility] IMMATURE GRANS % 0.4 0.0 - 0.5 % 01/28/2025 2:54 PM MANAGER STATISTICS [facility] ABS. LYMPHOCYTES 1.48 0.80 - 4.70 x10'3/uL 01/28/2025 2:54 PM MANAGER STATISTICS [facility] BLOOD VENOUS BLOOD SPECIMEN / Unknown 01/28/2025 2:45 PM MANAGER STATISTICS Huey Cartwright MD LABORATORY Final Result Performing Organization Address City/State/RUST Co de Phone Number [facility] [address] [place] [address], * URINE BACTERIA CULTURE (01/28/2025 1:33 PM MANAGER STATISTICS) CULTURE RESULT [facility] [address] [facility] [place] Comment: CULTURE, URINE, ROUTINE Micro Number: [id number] Test Status: Final Specimen Source: Urine Specimen Quality: Adequate Result: No Growth URINE URINE SPECIMEN OBTAINED BY CLEAN CATCH PROCEDURE / Unknown 01/28/2025 1:33 PM MANAGER STATISTICS 01/29/2025 12:25 AM MANAGER STATISTICS Narrative Resulting Agency Comment Performing Organization Information: Site ID: SL Name: [facility] Address: [address] [place] [address] Director: Jenaro Mcclellan Khloe ROGERS MICROBIOLOGY - GENERAL ORDER SUSANA Final Result [facility] [place] [address] [place] [address], [place] * (ABNORMAL) URINALYSIS AUTO DIP (01/28/2025) COLOR (U) YELLOW YELLOW [id number], [facility] CLEAR CLEAR [id number], [place] GLUCOSE (U) NEGATIVE NEGATIVE MG/DL [id number] [place] BILIRUBIN (U) NEGATIVE NEGATIVE MG-[address] [place] KETONES MG/DL (U) 15 (SMALL 1+)(A) NEGATIVE MG/DL [id number] [place] SPECIFIC GRAVITY (U) 1.010 1.001 - 1.035 [id number] [facility] BLOOD (U) TRACE (Non Hemolyzed, Intact)(A) NEGATIVE [id number] [place] U PH 6.5 5.0 - 9.0 MG-[id number] [place] PROTEIN (U) NEGATIVE NEGATIVE mg/dL [id number] UROBILINOGEN 0.2 0.2 - 1.0 EU/dL = mg/dL [id number] [facility] NITRITES NEGATIVE NEGATIVE MG/DL MG-[id number] LEUKOCYTES (U) TRACE(A) NEGATIVE MG-[address] URINE URINE SPECIMEN OBTAINED BY CLEAN CATCH PROCEDURE / Unknown 01/28/2025 us Khloe ROGERS URINE ORDERABLES Final Resul t [id number] [place] [address] [place] [address], [place] [phone] * (ABNORMAL) TSH W/REFLEX (11/19/2024 6:37 AM CDT) TSH 5.40(H) mIU/L [facility] Comment: Reference Range > or = 20 Years 0.40-4.50 Ranges First trimester 0.26-2.66 Second trimester 0.55-2.73 Third trimester 0.43-2.91 FREE T4 1.2 0.8 - 1.8 ng/dL [facility] 11/19/2024 6:37 AM CDT 11/19/2024 6:37 AM CDT Narrative Resulting Agency Comment Performing Organization Information: Site ID: [id number] Name: [facility] Address: [address] [place], [place] [address] [place] [address] Director: Jenaro Mcclellan MD us Keziakerry Chowdhury REVIEW TRAINER LABORATORY Final Res ult [facility] [id number] [place] [address], * HEPATITIS C ANTIBODY W/RFX TO HCV RNA (09/08/2023 6:34 AM CDT) Pathologist [facility] HEPATITIS C AB NON-REACT JOSSUE NON-REACT JOSSUE [facility] Comment: HCV antibody was non-reactive. There is no laboratory evidence of HCV infection. In most cases, no further action is required. However, if recent HCV exposure is suspected, a test for HCV RNA (test code 86366) is suggested. For additional information please refer to http://education.Evisors/faq/TZL37x5 (This link is being provided for informational/ educational purposes only.) 09/08/2023 6:34 AM CDT 09/08/2023 6:35 AM CDT Narrative [facility] - 09/09/2023 8:01 AM CDT FASTING:YES FASTING: YES Resulting Agency Comment Performing Organization Information: Site ID: [id number] Name: [facility] Address: [address] [address] Director: Jenaro Mcclellan MD us Kezia Chowdhury NP LABORATORY Final Res ult [facility] [address] [address] [address], * PAP SMEAR WITH HPV (06/28/2022) 06/28/2022 us [facility] Scanned SCANNING Final Resu lt from Last 3 Months or Most Recently Relevant to Health Maintenance Insurance [facility] Care Teams Emergency Care Attendant Relationship Specialty Start Date End Date Kezia Chowdhury NP [address] [place] [address] PCP - General NURSE PRACTITIONER 06/16/23
--- OUTSIDE RECORDS SUMMARY | 2025-02-11 11:46 | XMS_ITS | Encounter Summary ---
Author Organization [facility] Address [facility] [place] [address] Care Team Providers Care Theatre Instructor Name Role Phone Kezia Chowdhury NP Primary Care Provider [phone] Encounter Details Date Type Department Care Team (Late Contact Info) Description 01/29/2025 Results Follow-Up [facility] Family & Internal Medicine [facility] [address] [place] [phone] Khloe Degroot, SUE [address] [place] [address] URINALYSIS AUTO DIP, URINE BACTERIA CULTURE Social History Tobacco Use Types Packs/Day Years Used Date Smoking Tobacco: Never Passive Smoke Exposure: Never Smokeless Tobacco: Never Alcohol Use Standard Drinks/Week Comments Yes 1.7 (1 standard drink = 0.6 oz p ure alcohol) PHQ-2 Answer Date Recorded Patient Health Questionnaire-2 Score 0 09/08/2024 Comments No Sex and Gender Information Value Date Recorded Sex Assigned at Female 09/08/2024 7:52 AM CDT Legal Sex Female 10:04 PM GRADUATE STUDIES DEAN Gender Identity Not on file Sexual Orientation Not on file documented as of this encounter Plan of Treatment Not on file documented as of this encounter Visit Diagnoses Not on filedocumented in this encounter Additional Health Concerns Assessment Noted Time PHQ-9 Depression Total Score: 5 09/09/19 25 8:03 AM CDT documented as of this encounter Care Teams Theatre Instructor Relationship Specialty Start Date End Date Kezia Chowdhury NP [address] [place] [address] PCP - General NURSE PRACTITIONER 06/16/23 documented as of this encounter
--- OUTSIDE RECORDS SUMMARY | 2025-02-11 11:46 | XMS_ITS | Clinical Summary ---
Author Organization [facility] Address [facility] [place] [address] Care Team Providers Care Compressed Air Pile Driver Operator Name Role Phone No, Physician Primary Care Provider [phone] Social History Tobacco Use Types Packs/Day Years Used Date Smoking Tobacco: Never Assessed Comments Unknown Sex and Gender Information Value Date Recorded Sex Assigned at Not on file Legal Sex Female 1:41 PM SEWAGE PLANT ATTENDANT Gender Identity Not on file Sexual Orientation Not on file Last Filed Vital Signs Vital Sign Reading Time Taken Comments Blood Pressure - - Pulse - - Temperature - - Respiratory Rate - - Oxygen Saturation - - Inhaled Oxygen Concentration - - Weight 145 kg (319 lb 10.7 oz) 02/07/2012 6:52 A M SEWAGE PLANT ATTENDANT Height 167.6 cm (5' 5.98) 02/07/2012 6:52 AM CS T Body Mass Index 51.62 02/07/2012 6:52 AM SEWAGE PLANT ATTENDANT Plan of Treatment Not on file Insurance [facility] CHOICE PLUS CHOICE PLUS Care Teams Compressed Air Pile Driver Operator Relationship Specialty Start Date End Date No, Physician PCP - General 09/08/19
--- OUTSIDE RECORDS SUMMARY | 2025-02-11 11:46 | XMS_ITS | Clinical Summary ---
Author Organization [facility] Address [address] [place] [address] Care Team Providers Care Prize Fighter Name Role Phone Unavailable Primary Care Provider Unavailabl e Encounters Date Type Department Care Team Description 12/28/2024 External Device Data ST[facility] ABSTRACTION Provider, Abstract 12/22/2024 External Device Data [facility] ABSTRACTION Provider, Abstract 12/21/2024 External Device Data [facility] ABSTRACTION Provider, Abstract 12/14/2024 External Device Data [facility] ABSTRACTION Provider, Abstract from Last 3 Months Social History Tobacco Use Types Packs/Day Years Used Date Smoking Tobacco: Never Assessed Comments Unknown Sex and Gender Information Value Date Recorded Sex Assigned at Not on file Legal Sex Female 1:20 PM CDT Gender Identity Not on file Sexual Orientation Not on file Plan of Treatment Health Maintenance Due Date Last Done Comments HEPATITIS B VACCINES (1 of 3 - 19+ 3-dose series) 12/10/2002 HPV/Cotest (21-29) 12/10/2004 CERVICAL CANCER SCREENING 12/10/2013 HPV/Cotest (30-65) 12/10/2013 PAP SMEAR 12/10/2013 DTAP/TDAP/TD VACCINES (3 - T d or Tdap) 02/24/2018 02/25/2008, 05/21/1989 INFLUENZA VACCINE (#1) 2024 , 01/05/2015, 11/23/2013 BREAST CANCER SCREENING 12/30/2024 12/31/2023 HPV VACCINES (No Doses Required) Completed Procedures Procedure Name Priority Date/Time Associated Diagnosis Comments MAMMO 3D KIM SCREEN BILAT W OR WO CAD Routine 12/31/2023 9:40 AM CLINICAL ASSESSMENT MANAGER Visit for screening mammogram from Last 3 Months or Most Recently Relevant to Health Maintenance Results * MAMMO 3D KIM SCREEN BILAT W OR WO CAD (12/31/2023 9:40 AM CLINICAL ASSESSMENT MANAGER) Anatomical Region Laterality Modality Breast Bilateral Mammography 12/31/2023 9:40 AM CLINICAL ASSESSMENT MANAGER Impressions 12/31/2023 9:47 AM CLINICAL ASSESSMENT MANAGER IMPRESSION: NO MAMMOGRAPHIC EVIDENCE OF MALIGNANCY. OVERALL BIRADS CATEGORY:1 - negative. ROUTINE SCREENING MAMMOGRAPHY IS RECOMMENDED IN 12 MONTHS. A normal letter will be sent to patient. Narrative 12/31/2023 9:47 AM CLINICAL ASSESSMENT MANAGER EXAM: MAMMO 3D KIM SCREEN BILAT W OR WO CAD STUDY DATE: 12/31/2023 9:40 AM CLINICAL INDICATION: 38 years old female presents for baseline screening mammography. COMPARISON: None PROCEDURE: CC and MLO digital mammographic views of the bilateral breasts are obtained. Computer Aided Detection (CAD) was utilized. Tomosynthesis was done with all views. FINDINGS: Breast Density: Heterogeneously dense, which may lower the sensitivity of mammography. Right breast: There are no spiculated masses, suspicious microcalcifications or areas of architectural distortion in the right breast. Left breast: There are no spiculated masses, suspicious microcalcifications or areas of architectural distortion in the left breast. us Jeannie Tabor MD MAMMO ORDERABLES Final Re sult from Last 3 Months or Most Recently Relevant to Health Maintenance Insurance [facility] OPEN ACCESS HMO
--- OUTSIDE RECORDS SUMMARY | 2025-02-11 11:46 | XMS_ITS | Encounter Summary ---
Author Organization 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
--- OUTSIDE RECORDS SUMMARY | 2025-02-11 11:46 | XMS_ITS | Encounter Summary ---
Author Organization [facility] Address [facility] [place] [address] Care Team Providers Care Steel Manager Name Role Phone Kezia Chowdhury NP Primary Care Provider [phone] Encounter Details Date Type Department Care Team (Late st Contact Info) Description 10/04/2024 BoatSetter Message Enc [facility] Family Medicine - [place] [address] [phone] Kezia Chowdhury NP [address] [place] [address] [phone] Thyroid medication increase Social History Tobacco Use Types Packs/Day Years [...] AM CDT Legal Sex Female 10:[address] Gender Identity Not on file Sexual Orientation Not on file documented as of this encounter Plan of Treatment Not on file documented as of this encounter Visit Diagnoses Not on filedocumented in this encounter Additional Health Concerns Assessment Noted Time PHQ-9 Depression Total Score: 5 09/09/19 25 8:03 AM CDT documented as of this encounter Care Teams Steel Manager Relationship Specialty Start Date End Date Kezia Chowdhury NP [address] [place] [address] PCP - General NURSE PRACTITIONER 06/16/23 documented as of this encounter
--- OUTSIDE RECORDS SUMMARY | 2025-02-11 11:46 | XMS_ITS | Encounter Summary ---
Author Organization [facility] Address [facility] [place] [address] Care Team Providers Care Office Equipment Technician Name Role Phone Kezia Chowdhury NP Primary Care Provider [phone] Encounter Details Date Type Department Care Team (Late st Contact Info) Description 09/10/2023 Extenda-Dent Message Enc [facility] Family Medicine - [place] [address] [facility] [address] [place] [address] [phone] Kezia Cohwdhury, EM [address] [place] [address] [phone] 09/08/23 Lab Results Social History Tobacco Use Types Packs/Day Years Used Date Smoking Tobacco: Never Passive Smoke Exposure: Never Smokeless Tobacco: Never Alcohol Use Standard Drinks/Week Comments Yes 1.7 (1 standard drink = 0.6 oz p ure alcohol) PHQ-2 Answer Date Recorded Patient Health Questionnaire-2 Score 0 06/16/2023 Comments No Sex and Gender Information Value Date Recorded Sex Assigned at Female 09/08/2024 7:52 AM CDT Legal Sex Female 10:04 PM ANIMAL HUSBANDMAN Gender Identity Not on file Sexual Orientation Not on file documented as of this encounter Plan of Treatment Not on file documented as of this encounter Visit Diagnoses Not on filedocumented in this encounter Additional Health Concerns Assessment Noted Time PHQ-9 Depression Total Score: 6 06/16/19 24 10:18 AM CDT documented as of this encounter Care Teams Office Equipment Technician Relationship Specialty Start Date End Date Kezia Chowdhury NP [address] [place] [address] PCP - General NURSE PRACTITIONER 06/16/23 documented as of this encounter
== END 2025-02-11 11:13 | disposition home or self-care (01) ==
PROVIDERS: Visit Provider Nurse Practitioner
DX: R10.32 Left lower quadrant pain (principal)
CPT/HCPCS: 74177; Q9967